=== PATIENT | female | born 1975 | race Caucasian/White ===

== ENCOUNTER 2017-03-17 20:36 | Emergency (ER) | payer MEDICAID ==
[~2017-03-17] VITALS: Ht 157.5 cm; Wt 66.0 kg
[~2017-03-17 20:36] MED LIST: FERR324T4 PO; IBUP-675 PO
[2017-03-17] MEDS ORDERED: IBUPROFEN 600 MG TABLET PO ONE (21:45)
[2017-03-17 23:11] VITALS: BP 128/77
== END 2017-03-17 23:14 | disposition home or self-care (01) ==
LOC: EMS 20:38
DX: S20.219A Contusion of unspecified front wall of thorax, initial encounter (principal); S80.212A Abrasion, left knee, initial encounter; S09.90XA Unspecified injury of head, initial encounter; Y08.89XA Assault by other specified means, initial encounter; Y93.89 Activity, other specified; Y92.9 Unspecified place or not applicable; Y99.9 Unspecified external cause status
CPT/HCPCS: 70450; 71101; 81025; 99284